=== PATIENT | male | born 1995 | race African-American/Black ===

== ENCOUNTER 2023-04-13 14:51 | Emergency (ER) | payer OTHER ==
[~2023-04-13] VITALS: Ht 177.8 cm; Wt 100.0 kg
[2023-04-13 14:57] VITALS: TEMP 98; O2SAT 99
[2023-04-13 18:15] VITALS: BP 129/85; PULSE 81; RESP 18
[2023-04-13] MEDS ORDERED: IBUPROFEN 600MG TABLET PO ONE (18:15)
[2023-04-13] MEDS ORDERED: CYCLOBENZAPRINE 10MG TABLET PO ONE (18:15)
[2023-04-13] MEDS ORDERED: BACITRACIN ZINC OINT UDPKT TOP ONE (18:15)
[2023-04-13] MEDS ORDERED: METH-653 MT (19:24)
[2023-04-13] MEDS ORDERED: IBUP-2029 MT (19:24)
== END 2023-04-13 19:00 | disposition home or self-care (01) ==
LOC: ER 14:51
DX: M25.562 Pain in left knee (principal); V49.49XA Driver injured in collision with other motor vehicles in traffic accident, initial encounter; Y93.89 Activity, other specified; Y92.89 Other specified places as the place of occurrence of the external cause; Y99.8 Other external cause status
CPT/HCPCS: 73562; 99284; Z7610 ×2